=== PATIENT | male | born 1985 | race Caucasian/White ===

== ENCOUNTER 2022-09-01 14:13 | Emergency (ER) | payer MEDICAID, SELFPAY ==
--- NOTE | ~2022-09-01 | XR_ITS ---
EXAMINATION: XR chest 1V Exam Date/Time: 09/01/2022 16:00 CDT HISTORY: Body aches, back pain Comparison: None available. RESULT: Lines, tubes, and devices: None. Lungs and pleura: Clear. Calcified right lower lobe granuloma. Cardiomediastinal silhouette: Stable. Other: No acute osseous or upper abdominal finding. IMPRESSION: No acute cardiopulmonary process. Reviewed, dictated and finalized at location K.
--- NOTE | ~2022-09-01 | CT_ITS ---
EXAMINATION: CT cervical spine wo con DATE: 09/01/2022 16:04 INDICATION: Neck pain TECHNIQUE: Computed tomography (CT) of the cervical spine was performed without intravenous contrast. Automated exposure control and iterative reconstruction technique were employed. The dose-length pro duct was 465.94 mGy-cm. COMPARISON: None. FINDINGS: Vertebral Body Alignment: Intact. . Craniocervical and atlantoaxial alignment: Mild degenerative change. Alignment intact. Osseous structures/fracture: No evidence of a lytic or blastic process in the visualized spine. No e vidence of acute fracture. . Cervical soft tissues: The paraspinal soft tissues planes are maintained. Degenerative changes: No significant degenerative changes. IMPRESSION: No acute fracture or traumatic malalignment in the cervical spine. Reviewed, dictated and finalized at location K.
--- NOTE | ~2022-09-01 | CT_ITS ---
EXAMINATION: CT brain wo con DATE: 09/01/2022 16:04 INDICATION: Nontraumatic headache . TECHNIQUE: Computed tomography (CT) of the head was performed without intravenous contrast. The mA wa s adjusted according to patient size. Iterative reconstruction technique was employed. The dose-lengt h product was 605.33 mGy-cm. COMPARISON: None. FINDINGS: No acute intracranial hemorrhage or extra-axial fluid collection. No hydrocephalus, mass, or herniation. No acute ischemic infarct. Unremarkable dural venous sinus attenuation. No acute osseous abnormality. The aerated spaces are clear. IMPRESSION: No acute intracranial process. Reviewed, dictated and finalized at location K.
[2022-09-01 14:21] VITALS: BP 150/95; PULSE 98; RESP 17; TEMP 36.7; O2SAT 98
--- NOTE | 2022-09-01 15:52 | PC.NURSE ---
Pt made aware of possible disruption that facial piercing will cause during CT of neck and head. Pt insist at this time that his lip piercing and derm piercing stays in. spray technician made aware and pt continued with CTs at this time.
[2022-09-01] MEDS: SODIUM CHLORIDE 0.9% IV 1,000 ML 999 ML IV CONT (16:07)
[2022-09-01] MEDS: ONDANSETRON INJ 4 MG/2 ML VIAL IV PUSH (16:07)
[2022-09-01 16:08] LABS: Basophils Percent Auto 0.4 % (0.2-1.2); Eosinophils Absolute Auto 0.1 K/mm3 (0-0.3); Eosinophils Percent Auto 1.3 % (0-4.4); Hematocrit 46.1 % (42.0-52.0); Hemoglobin 15.1 g/dL (14.0-18.0); Immature Granulocyte Absolute 0.03 K/mm3 (0.00-0.031); Immature Granulocyte Percent A 0.3 % (0-0.5); Lymphocytes Absolute Auto 1.87 K/mm3 (0.9-3.2); Lymphocytes Percent Auto 20.7 % (18.3-44.2); Mean Corpuscular HGB Conc 32.8 g/dl (32-36); Mean Corpuscular Hemoglobin 30.4 pg (26-34); Mean Corpuscular Volume 92.8 fl (80-100); Monocytes Absolute Auto 0.6 K/mm3 (0.1-0.6); Neutrophils Absolute Auto 6.3 K/mm3 (1.3-6.7); Neutrophils Percent Auto 70.3 % (45.5-73.1); Platelet Count Result 250 k/mm3 (150-375); Red Blood Count 4.97 M/mm3 (4.6-6.20); Red Cell Distribution Width 13.9 % (11.5-14.5)
[2022-09-01] MEDS: KETOROLAC 30 MG/ML VIAL (*BKC) IV PUSH (16:08)
[2022-09-01 16:19] LABS: Alanine Aminotransferase 51 U/L (6-50); Albumin Level 4.4 g/dL (3.5-5.1); Alkaline Phosphatase 99 U/L (38-126); Anion Gap 5 mmol/L (8-16); Aspartate Amino Transferase 30 U/L (17-59); Bilirubin,Total 0.8 mg/dL (0.2-1.3); Blood Urea Nitrogen 15 mg/dL (9-20); Carbon Dioxide 31 mmol/L (22-30); Chloride 105 mmol/L (98-107); Estimated CRCL calculation 108 ml/min; Estimated Glomerular Filt Rate > 60; Glucose 81 mg/dL (65-110); Potassium 4.2 mmol/L (3.4-5.0); Sodium 141 mmol/L (137-145)
[2022-09-01 16:33] LABS: Erythrocyte Sedimentation Rate 17 mm/hr (0-20)
[2022-09-01 16:40] LABS: CRP 1.5 mg/dL (<1.0)
[2022-09-01 16:59] VITALS: BP 152/102; PULSE 76; RESP 18; O2SAT 100
--- NOTE | 2022-09-01 17:27 | ED.GENADULT ---
HPI - General Adult General Chief complaint: Neck Pain/Injury Stated complaint: neck pain x3 weeks Time Seen by Provider: 09/01/22 14:59 Source: patient and family Mode of arrival: ambulatory Limitations: no limitations History of Present Illness HPI narrative: Patient is 37 years old white male came to the emergency room with multiple complaints including headache, neck pain, back pain, bilateral shoulder pain and leg pain bilaterally feeling tightness all over, started 3 weeks ago did not see any doctor yet, he denies any fever, chills, nausea, vomiting, abdominal pain, chest pain, shortness of breath or vision change. Related Data Allergies Allergy/AdvReac Type Severity Reaction Status Date / Time bee venom protein (honey bee) Allergy Anaphylaxis Verified 09/01/22 15:00 Penicillins Allergy Anaphylaxis Verified 09/01/22 15:00 Review of Systems Review of Systems: All systems reviewed & are unremarkable except as noted in HPI and below Exam Narrative: General appearance: Well-developed, well-nourished Skin: Normal color, Head: Normocephalic, nontraumatic extensive proximal hidradenitis suppurativa of the scalp Eyes: Clear conjunctiva ENT: Oropharynx normal, ears normal, nose normal Neck: Supple, diffuse tenderness, left lymphadenopathy Chest and respiratory: Airway patent, no respiratory distress, no accessory muscle use Heart: Regular rate/rhythm Abdomen: Soft, nontender, no organomegaly, quiet bowel sounds Vascular: Normal peripheral pulses, normal capillary refill. 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, no gross motor deficit Course Vital Signs Vital signs: Vital Signs Temperature 36.7 C 09/01/22 14:21 Pulse Rate 98 09/01/22 14:21 Respiratory Rate 17 09/01/22 14:21 Blood Pressure 150/95 H 09/01/22 14:21 Pulse Oximetry 98 09/01/22 14:21 Oxygen Delivery Room Air 09/01/22 14:21 Temperature 36.7 C 09/01/22 14:21 Pulse Rate 76 09/01/22 16:59 Respiratory Rate 18 09/01/22 16:59 Blood Pressure 152/102 H 09/01/22 16:59 Pulse Oximetry 100 09/01/22 16:59 Oxygen Delivery Room Air 09/01/22 14:21 Medical Decision Making MDM Narrative Medical decision making narrative: Patient 37 years old white male presents with headache, neck pain, back pain, upper extremity and lower extremity pain all over feeling tightness. Started 3 weeks ago, he denies any fever, chills, nausea, vomiting, chest pain, shortness of breath. Physical examination showed diffuse tenderness all over, no rash, no swelling. Extensive hidradenitis suppurativa of the scalp patient been followed by a recreation adviser, denying any aggravation of his skin disorder. Looks much better than usual. Patient does not have a job. Differential diagnosis musculoskeletal pain could be secondary to rheumatology disorder, fibromyalgia, depression, lack of activities. Labs including inflammatory markers that came back within normal limits. CT head and cervical spine without contrast showed no acute abnormalities. Patient received 1 L of normal saline, 30 mg of Toradol and Zofran 4 mg IV, with some improvement. Musculoskeletal pain of unknown etiology is my concern at this time. My plan to discharge him on anti-inflammatory medication, muscle relaxant and Vistaril and if there is no improvement in 7 days to follow-up with his family physician for further evaluation. Differential Diagnosis Differential Diagnosis: Musculoskeletal pain, electrolyte imbalance, fibromyalgia, depression Vital Signs Vital Signs: Vital Signs Temperature 36.7 C 09/01/22 14:21 Pulse
== END 2022-09-01 18:00 | disposition home or self-care (01) ==
PROVIDERS: Emergency Provider Emergency Medicine
DX: R93.7 Abnormal findings on diagnostic imaging of other parts of musculoskeletal system (principal)
CPT/HCPCS: 36415; 70450; 71045; 72125; 80053; 85025; 85652; 86140; 96361; 96374; 96375; 99284; J1885; J2405; J7030